=== PATIENT | female | born 1960 | race African-American/Black ===

== ENCOUNTER 2020-09-04 23:40 | Emergency (ER) | payer SELFPAY ==
[~2020-09-04] VITALS: Ht 160 cm; Wt 67.2 kg
[2020-09-05 00:15] VITALS: BP 111/78
[2020-09-05] MEDS ORDERED: ACETAMINOPHEN 500MG TABLET PO ONE (00:30)
[2020-09-05] MEDS ORDERED: ONDANSETRON 4MG ODT PO ONE (00:30)
== END 2020-09-05 01:28 | disposition home or self-care (01) ==
LOC: ER 23:40
DX: U07.1 COVID-19 (principal); R03.0 Elevated blood-pressure reading, without diagnosis of hypertension
CPT/HCPCS: 93005; 99284; C9803; Q0162; U0003; 99283